=== PATIENT | male | born 1975 | race Caucasian/White ===

== ENCOUNTER → 2024-04-12 08:21 | Outpatient (BNVA) | payer OTHER, SELFPAY | PROVIDERS: PCP Family Medicine; Referring Provider Family Medicine; Visit Provider Physician Assistant | DX: M25.511 Pain in right shoulder; M75.41 Impingement syndrome of right shoulder | CPT/HCPCS: 73030 ==

== ENCOUNTER 2024-08-05 13:37 | Outpatient (CLI) | payer OTHER, SELFPAY ==
--- NOTE | 2024-08-05 13:45 | MR_ITS ---
WS: [id number] MRI RIGHT SHOULDER HISTORY: Pain. COMPARISON: 04/12/2024 TECHNIQUE: Multiplanar sequences of the shoulder joint are submitted. Mild AC joint arthritis. Mild hypertrophic bone and soft tissue. No subacromial impingement. Normal p osition of the biceps tendon. No os acromion. Slightly high riding humeral head. Mild narrowing of the glenohumeral joint. No rotator cuff muscle a trophy or edema. No rotator cuff tendon tear is identified. Mild fraying and intrasubstance degenerat ion along the superior labrum. No tear identified. There is some very mild increased T2 signal in the coracohumeral ligament and thickening of the axill kait pouch. Correlate for possible adhesive capsulitis. MR/MR shoulder RT wo con* [id number] IMPRESSION: 1. Mild AC joint arthritis. 2. No rotator cuff tendon tear. 3. Mild increased T2 signal thickening of the coracohumeral ligament. This can be seen with adhesive capsulitis. 4. No labral tear is identified. There is some very mild fraying along the sup erior labrum but no tear.
== END 2024-08-05 13:38 | disposition home or self-care (01) ==
LOC: RAD 13:37
PROVIDERS: PCP Family Medicine; Visit Provider Physician Assistant
DX: M75.41 Impingement syndrome of right shoulder (principal)
CPT/HCPCS: 73221